=== PATIENT | male | born 1990 | race African-American/Black ===

== ENCOUNTER 2019-09-30 09:06 | Emergency (ER) | payer OTHER ==
[~2019-09-30] VITALS: Ht 172.7 cm; Wt 106.6 kg
[2019-09-30 10:21] VITALS: BP 133/79
== END 2019-09-30 10:32 | disposition home or self-care (01) ==
LOC: ER 09:06
DX: S63.91XA Sprain of unspecified part of right wrist and hand, initial encounter (principal); X50.1XXA Overexertion from prolonged static or awkward postures, initial encounter; Y93.89 Activity, other specified; Y92.89 Other specified places as the place of occurrence of the external cause; Y99.8 Other external cause status
CPT/HCPCS: 73130

== ENCOUNTER 2020-01-05 21:49 | Emergency (ER) | payer OTHER ==
[~2020-01-05] VITALS: Ht 175.3 cm; Wt 101.6 kg
[2020-01-05 22:15] VITALS: BP 143/87
== END 2020-01-05 23:47 | disposition home or self-care (01) ==
LOC: ER 21:49
DX: K52.9 Noninfective gastroenteritis and colitis, unspecified (principal)

== ENCOUNTER 2022-05-08 01:24 | Emergency (ER) | payer SELFPAY ==
[~2022-05-08] VITALS: Ht 175.3 cm; Wt 134.9 kg
[2022-05-08 01:30] VITALS: BP 155/79
[2022-05-08] MEDS ORDERED: ALBUTEROL SULF 2.5 MG/0.5ML(0.5%) NEB SOLN NEB ONE ×2 (01:45→05:45)
[2022-05-08] MEDS ORDERED: IPRATROPIUM BROM 0.5 MG/2.5ML INH SOL NEB ONE ×2 (01:45→05:45)
[2022-05-08] MEDS ORDERED: DexAMETHasone SOD PHOS 10MG/1ML VIAL INJ IM ONE (02:45)
[2022-05-08] MEDS ORDERED: PRED20TA2 PO (05:41)
[2022-05-08] MEDS ORDERED: ALBUAER3 IN (05:41)
== END 2022-05-08 06:12 | disposition home or self-care (01) ==
LOC: ER 01:24
DX: J45.901 Unspecified asthma with (acute) exacerbation (principal)
CPT/HCPCS: 71046; 94640; 96372; 99284; J1100; J7644

== ENCOUNTER 2022-05-13 20:17 | Emergency (ER) | payer SELFPAY ==
[~2022-05-13] VITALS: Ht 175.3 cm; Wt 138.0 kg
[~2022-05-13 20:17] MED LIST: ALBUAER3 IN; PRED20TA2 PO
[2022-05-13] MEDS ORDERED: ALBUTEROL SULF 2.5 MG/0.5ML(0.5%) NEB SOLN NEB ONE (21:00)
[2022-05-13] MEDS ORDERED: IPRATROPIUM BROM 0.5 MG/2.5ML INH SOL NEB ONE (21:00)
[2022-05-13] MEDS ORDERED: amLODIPine BESYLATE 5 MG TAB PO ONE (21:00)
[2022-05-13 21:23] LABS: Basophils # (auto) 0.1 10 ^3/uL (0-0.2); Basophils % (auto) 0.3 % (0.0-2.0); Eosinophils # (auto) 0 10 ^3/uL (0-0.8); Eosinophils % (auto) 0.1 % (0.0-7.0); Hematocrit 46.3 % (41.0-53.0); Lymphocytes # (auto) 2.1 10 ^3/uL (0.4-5.4); Mean Corpuscular Hemoglobin 27.1 pg (28.0-32.0); Mean Corpuscular Hgb Conc. 32.5 g/dL (32.0-36.0); Mean Corpuscular Volume 83.5 fL (80.0-100.0); Monocytes # (auto) 1.6 10 ^3/uL (0-1.3); Monocytes % (auto) 8.3 % (0.0-12.0); Neutrophils # (auto) 15.1 10 ^3/uL (1.6-8.6); Neutrophils % (auto) 80.3 % (37.0-80.0); Nucleated Red Blood Cells % 0.6 %; Red Blood Cells 5.55 10^6/uL (4.5-5.90); Red Cell Distribution Width 16.5 % (11.8-14.3); White Blood Cell 18.8 10^3/uL (4.4-10.8)
[2022-05-13 21:38] LABS: INR 1.01 (0.9-1.15); Partial Thromboplastin Time 31.1 sec (24.6-33.4)
[2022-05-13 21:41] LABS: Albumin 4.1 g/dL (3.4-5.0); Calcium 9.2 mg/dL (8.5-10.1); Magnesium 2.4 mg/dL (1.6-2.6); Potassium 3.8 mmol/L (3.5-5.1)
[2022-05-13 21:47] LABS: BUN/Creatinine Ratio 13.9; Bilirubin, Total 0.3 mg/dL (0.2-1.0)
[2022-05-14] MEDS ORDERED: cefTRIAXone 1GM/50ML D5W 50 ML IV ONE
[2022-05-14] MEDS ORDERED: AZITHROMYCIN 250 MG TAB PO ONE
[2022-05-14] MEDS ORDERED: methylPREDNISolone SOD SUCC 125 MG/2 ML VL IV ONE
[2022-05-14] MEDS ORDERED: AZIT250T9 PO (00:23)
[2022-05-14] MEDS ORDERED: PRED20TA2 PO (00:23)
[2022-05-14 00:55] VITALS: BP 138/77
== END 2022-05-14 00:57 | disposition home or self-care (01) ==
LOC: ER 20:17
DX: J45.909 Unspecified asthma, uncomplicated (principal); R09.02 Hypoxemia; J18.9 Pneumonia, unspecified organism
CPT/HCPCS: 36415; 71045; 80053; 83735; 83880; 84484; 85025; 85610; 85730; 93005; 94640; 96365; 96375; 99285; J0696; J2930; J7644